=== PATIENT | male | born 1935 | race Hispanic/Latino ===

== ENCOUNTER 2019-04-15 18:03 | Emergency (ER) | payer MEDICARE, BC ==
[2019-04-15] MEDS ORDERED: Lidocaine 2% w/Epinephrine 1:200K 20 ML VIAL ONE (18:18)
== END 2019-04-15 18:43 | disposition home or self-care (01) ==
LOC: MADERS 18:03
DX: S51.812A Laceration without foreign body of left forearm, initial encounter (principal); E11.9 Type 2 diabetes mellitus without complications; E78.5 Hyperlipidemia, unspecified; W26.9XXA Contact with unspecified sharp object(s), initial encounter
CPT/HCPCS: 12001

== ENCOUNTER 2019-04-23 11:30 | Emergency (ER) | payer MEDICARE, BC ==
[2019-04-23] MEDS ORDERED: Bacitracin 1 PK ONE (12:41)
== END 2019-04-23 12:49 | disposition home or self-care (01) ==
LOC: MADERS 11:30
DX: S51.812D Laceration without foreign body of left forearm, subsequent encounter (principal); E11.9 Type 2 diabetes mellitus without complications; E78.5 Hyperlipidemia, unspecified; W26.8XXD Contact with other sharp object(s), not elsewhere classified, subsequent encounter